=== PATIENT | female | born 1995 | race Hispanic/Latino ===

== ENCOUNTER 2017-08-21 22:51 | Emergency (ER) | payer MEDICAID, OTHER ==
[2017-08-21] MEDS ORDERED: HYDROXYZINE HCL 25 MG TABLET ONE (23:22)
== END 2017-08-21 23:36 | disposition home or self-care (01) ==
LOC: EDH 22:51
DX: F41.1 Generalized anxiety disorder (principal); R20.2 Paresthesia of skin; Z72.0 Tobacco use